=== PATIENT | female | born 2000 | race Caucasian/White ===

== ENCOUNTER → 2021-07-18 15:42 | Outpatient (BNVA) | payer BC, SELFPAY | PROVIDERS: Family Provider Pediatrics; PCP Pediatrics; Visit Provider Nurse Practitioner | DX: R50.9 Fever, unspecified (principal); Z20.822 Contact with and (suspected) exposure to COVID-19 | CPT/HCPCS: 87400; 87635 ==

== ENCOUNTER → 2022-08-16 14:04 | Outpatient (BNVA) | payer BC, SELFPAY | PROVIDERS: Family Provider Pediatrics; PCP Family Medicine; Visit Provider Clinical Nurse Specialist Adult Health | DX: J06.9 Acute upper respiratory infection, unspecified (principal); J02.8 Acute pharyngitis due to other specified organisms | CPT/HCPCS: 87880 ==

== ENCOUNTER → 2022-09-09 11:40 | Outpatient (BNVA) | payer BC, SELFPAY | PROVIDERS: Family Provider Pediatrics; PCP Family Medicine; Visit Provider Nurse Practitioner Women's Health | DX: Z01.419 Encounter for gynecological examination (general) (routine) without abnormal findings (principal); Z12.4 Encounter for screening for malignant neoplasm of cervix; Z30.9 Encounter for contraceptive management, unspecified; Z30.41 Encounter for surveillance of contraceptive pills | CPT/HCPCS: 88175 ==

== ENCOUNTER → 2023-02-05 12:05 | Outpatient (BNVA) | payer BC, SELFPAY | PROVIDERS: Family Provider Family Medicine; PCP Family Medicine; Visit Provider Registered Nurse Neonatal Intensive Care | DX: R30.0 Dysuria (principal); B37.31 Acute candidiasis of vulva and vagina | CPT/HCPCS: 81000 ==

== ENCOUNTER 2023-06-16 10:52 | Outpatient (CLI) | payer BC, SELFPAY ==
[2023-06-16 11:21] LABS: Basophils # 0.1 10^3/uL (0.0-0.1); Basophils % 0.9 %; Eosinophils # 0.1 10^3/uL (0.0-0.8); Eosinophils % 1.5 %; Hematocrit 45.4 % (36-47); Lymphocytes # 2.3 10^3/uL (0.8-4.8); Lymphocytes % 30.7 %; Mean Corpuscular HGB Conc 33.7 g/dL (30-55); Mean Corpuscular Hemoglobin 32.3 pg (27-33); Mean Platelet Volume 10.3 fL (7.4-10.4); Monocytes # 0.5 10^3/uL (0.2-0.9); Monocytes % 6.4 %; Neutrophils # 4.48 10^3/uL (1.8-7.7); Neutrophils % 59.7 %; Nucleated Red Blood Cells % 0 %; Platelet Count 237 10^3/cmm (157-399); Red Blood Count 4.73 10^6/uL (3.85-5.65); Red Cell Distribution Width 11.7 % (12.1-15.1)
[2023-06-16 11:24] LABS: HCG Qualitative Urine. Negative (Negative)
[2023-06-16 11:54] LABS: Alanine Aminotransferase 15 U/L (0-33); Albumin Level 4.4 g/dL (3.5-5.2); Alkaline Phosphatase 40 U/L (35-105); Aspartate Amino Transferase 14 U/L (0-32); Chol HDL Ratio 2.92 mg/dL (0.0-4.40); Cholesterol 152 mg/dL (0-200); Globulin 2.8 g/dL (1.3-4.6); HDL Cholesterol 52 mg/dL (60-100); LDL Cholesterol Calculated 91 mg/dL (50-129); Total Bilirubin 0.4 mg/dL (0.15-1.2); Total Protein 7.2 g/dL (6.6-8.7); Triglycerides 46 mg/dL (0-150); VLDL Cholestrol Calculation 9 mg/dL (0-30)
== END 2023-06-16 10:53 | disposition home or self-care (01) ==
PROVIDERS: PCP Family Medicine; Visit Provider Nurse Practitioner Family
DX: Z01.89 Encounter for other specified special examinations (principal)
CPT/HCPCS: 36415; 80061; 80076; 81025; 84702; 85025

== ENCOUNTER 2023-07-14 10:37 | Outpatient (CLI) | payer BC, SELFPAY ==
[2023-07-14 11:18] LABS: HCG Qualitative Urine. Negative (Negative)
== END 2023-07-14 10:38 | disposition home or self-care (01) ==
PROVIDERS: PCP Family Medicine; Visit Provider Nurse Practitioner Family
DX: L70.0 Acne vulgaris (principal)
CPT/HCPCS: 81025

== ENCOUNTER → 2023-08-13 10:46 | Outpatient (BNVA) | payer BC, SELFPAY | PROVIDERS: PCP Family Medicine; Visit Provider Nurse Practitioner | DX: Z00.00 Encounter for general adult medical examination without abnormal findings (principal); Z76.89 Persons encountering health services in other specified circumstances | CPT/HCPCS: 81025 ==

== ENCOUNTER 2023-09-12 10:09 | Outpatient (CLI) | payer BC, SELFPAY ==
[2023-09-12 11:17] LABS: HCG Qualitative Urine. Negative (Negative)
[2023-09-12 11:31] LABS: Alanine Aminotransferase 12 U/L (0-33); Albumin Level 4.1 g/dL (3.5-5.2); Alkaline Phosphatase 48 U/L (35-105); Aspartate Amino Transferase 14 U/L (0-32); Chol HDL Ratio 3.94 mg/dL (0.0-4.40); Cholesterol 138 mg/dL (0-200); Globulin 3.6 g/dL (1.3-4.6); HDL Cholesterol 35 mg/dL (60-100); LDL Cholesterol Calculated 71 mg/dL (50-129); LDL HDL Ratio 2.03 RATIO (0.00-3.22); Total Bilirubin 0.3 mg/dL (0.15-1.2); Total Protein 7.7 g/dL (6.6-8.7); Triglycerides 162 mg/dL (0-150)
== END 2023-09-12 10:10 | disposition home or self-care (01) ==
LOC: LAB 10:11
PROVIDERS: PCP Family Medicine; Visit Provider Nurse Practitioner Family
DX: L70.0 Acne vulgaris (principal)
CPT/HCPCS: 36415; 80061; 80076; 81025

== ENCOUNTER 2023-10-10 09:16 | Outpatient (CLI) | payer BC, SELFPAY ==
[2023-10-10 10:02] LABS: HCG Qualitative Urine. Negative (Negative)
== END 2023-10-10 09:17 | disposition home or self-care (01) ==
LOC: LAB 09:17
PROVIDERS: PCP Family Medicine; Visit Provider Nurse Practitioner Family
DX: L70.0 Acne vulgaris (principal)
CPT/HCPCS: 81025

== ENCOUNTER 2023-11-07 10:10 | Outpatient (CLI) | payer BC, SELFPAY ==
[2023-11-07 11:57] LABS: HCG Qualitative Urine. Negative (Negative)
== END 2023-11-07 10:11 | disposition home or self-care (01) ==
LOC: LAB 10:15
PROVIDERS: PCP Family Medicine; Visit Provider Nurse Practitioner Family
DX: L70.0 Acne vulgaris (principal)
CPT/HCPCS: 81025

== ENCOUNTER 2023-12-12 09:22 | Outpatient (CLI) | payer BC, SELFPAY ==
[2023-12-12 09:49] LABS: HCG Qualitative Urine. Negative (Negative)
== END 2023-12-12 09:23 | disposition home or self-care (01) ==
LOC: LAB 09:25
PROVIDERS: PCP Family Medicine; Visit Provider Nurse Practitioner Family
DX: L70.0 Acne vulgaris (principal)
CPT/HCPCS: 81025

== ENCOUNTER → 2024-07-26 08:59 | Outpatient (BNVA) | payer BC, SELFPAY | PROVIDERS: PCP Family Medicine; Visit Provider Nurse Practitioner | DX: R09.89 Other specified symptoms and signs involving the circulatory and respiratory systems (principal) | CPT/HCPCS: 71046 ==

== ENCOUNTER 2024-07-26 13:17 | Emergency (ER) | payer BC, SELFPAY ==
[2024-07-26 13:21] VITALS: BP 108/63; PULSE 75; RESP 16; TEMP 36.7; O2SAT 100
--- NOTE | 2024-07-26 14:08 | ED_ITS ---
HPI - SOB/Dyspnea 2 General: Chief Complaint: Shortness of Breath/Dyspnea Stated Complaint: SOB Time Seen by Provider: 07/26/24 13:53 Source: patient and family Mode of arrival: ambulatory Limitations: no limitations History of Present Illness: HPI Narrative: Patient is a 23-year-old female presents to ED today along with her mother for intermittent episodes of feeling like she cannot breathe. She states these have been going on for several weeks. She states over the past 3 days episodes have gotten more frequent and lasting longer. She states they seem to come out of nowhere and are not exertionally related. She states during episodes she feels like she cannot take a deep breath of air. She feels like her heart is flip- flopping or skipping beats. She states she has checked her pulse during episodes and it does not seem to be elevated. Patient states she has not been ill recently. She has not had any nasal congestion, runny nose, cough, or sore throat. No fevers. She has not had any swelling to her lower extremities or calf pain. Risk factors for PE would include hormonal contraception and car ride from [place]. She was reportedly seen at the urgent care clinic earlier today. There she had had some complaints of reflux. Note also stated she had recently quit vaping. Patient denies history of anxiety. She does feel like during episodes, her fingers will sometimes feel numb. During my initial assessment of pain she is asymptomatic. She states in between episodes she is completely asymptomatic. Mother states they have had increased family stress with the loss of patient's grandmother and the holidays. She is on medications for acne (accutane and spironolactone) but was having symptoms before these medications were started. MD elicited complaint: shortness of breath Onset (ago): week(s) Timing: intermittent Severity: moderate Exacerbating factors: nothing Relieving factors: nothing Associated symptoms: Reports chest pain and palpitations; Deny abdominal pain, chest congestion, extremity pain, fever(s), hemoptysis, lightheadedness, nausea, orthopnea, syncope or vomiting Treatment prior to arrival: none Related Data Home Medications Medication Instructions Recorded Confirmed dapsone 7.5 % topical gel with 1 applic topical BID 07/26/24 07/26/24 pump (Aczone) isotretinoin 30 mg capsule 30 mg PO BID 07/26/24 07/26/24 (Accutane) metronidazole 0.75 % topical gel 1 applic topical DAILY 07/26/24 07/26/24 spironolactone 50 mg tablet 50 mg PO DAILY 07/26/24 07/26/24 tretinoin 0.025 % topical cream 1 applic topical DAILY 07/26/24 07/26/24 Previous Rx's Medication Instructions Recorded levonorgestrel 0.15 mg-ethinyl 1 tab PO DAILY #84 tabs 10/26/23 estradiol 0.03 mg tablet (Levora-28) albuterol sulfate 90 mcg/actuation 2 puff inhalation Q4H PRN 07/26/24 aerosol inhaler (Ventolin HFA) shortness of breath or wheezing #8.5 grams famotidine 20 mg tablet 20 mg PO DAILY 4 weeks #30 tabs 07/26/24 lorazepam 0.5 mg tablet (Ativan) 0.5 mg PO BID PRN dyspnea #14 tabs 07/26/24 Allergies Allergy/AdvReac Type Severity Reaction Status Date / Time romeo Allergy Severe facial Verified 07/26/24 13:26 swelling Penicillins Allergy hives Verified 07/26/24 13:26 Review of Systems 2 Const: Denies: fever(s), chills, body aches, fatigue or malaise Eyes: Denies: change in vision, blurry vision or photophobia Card: Reports: chest pain and palpitations; Denies: irregular heart rhythm, edema, swelling of feet/ankles, lightheadedness, syncope, pre-syncope, dyspnea on exertion, orthopnea, leg pain with exertion or acrocyanosis Resp: Reports: dyspnea (intermittently ); Denies: productive cough, non-productive cough, wheezing, stridor, pain on inspiration, change in phlegm color, hemoptysis or chest congestion GI: Denies: abdominal pain, nausea, vomiting, heartburn or diarrhea : Denies: dysuria Musc: Denies: neck pain, back pain, extremity pain, extremity swelling or joint pain Skin/Breast: Denies: rash Neuro: Reports: sensory changes (sometimes gets numbness/tingling in fingers during episodes); Denies: headache(s), numbness in extremities or weakness in extremities PFSH ED 2 PFSH: Medical History Anxiety and depression No pertinent past medical history neghx: htn,dm,thyroid,dvt/pe PCP: Dr. Mendez Surgical History Hx of LASIK (~01/2023) H/O oral surgery (~08/2018) H/O arthroscopic knee surgery (~2017) H/O breast augmentation (~2018) Family History Denies family history of Colon cancer Ovarian cancer Diabetes Heart disease Hyperlipidemia Breast cancer Family history of thyroid problem Hypertension Uterine cancer Stroke Social History Smoking and tobacco/nicotine status: former use of tobacco/nicotine Female Reproductive History: Date of last menstrual period: 07/25/24 S pontaneous abortions: No Physical Exam 2 Const: COMMON NORMALS: no acute distress, average body habitus, patient oriented x3, no limitations, healthy appearing, alert and well nourished G ENERAL APPEARANCE: cooperative ORIENTATION/CONSCIOUSNESS: Yes awake, Yes oriented to person, Yes oriented to place and Yes oriented to time HENMT: COMMON NORMALS: normocephalic and atraumatic HEAD & SCALP: normal to inspection, normocephalic and atraumatic Eye: GENERAL EYE: appearance normal, both eyes and all related structures Neck/C-Spine: COMMON NORMALS: full ROM, no lymphadenopathy, supple and no meningeal signs Chest: COMMONS NORMALS: normal inspection of the chest and normal palpation of entire chest wall Resp: COMMON NORMALS: normal respiratory effort and clear to auscultation bilaterally AUSCULTATION: clear to auscultation bilaterally Cardio: COMMON NORMALS: regular rate and regular rhythm RATE: regular rate RHYTHM: regular rhythm GI: COMMON NORMALS: Normal to inspection, nondistended, normoactive bowel sounds present, Soft to palpation, non-tender, No hepatosplenomegaly present and no masses PALPATION: Yes Soft to palpation and Yes No hepatosplenomegaly present : COMMON NORMALS: Yes no CVA tenderness BLADDER/KIDNEY EXAM: Yes no CVA tenderness Back/Pelvis: COMMON NORMALS: no CVA tenderness and thoracic and lumbar spine normal to inspection Extremity: COMMON NORMALS: normal to inspection, capillary refill normal, no clubbing, cyanosis or edema, no calf tenderness and no pedal edema GENERAL: Y es normal exam except as noted Neuro: COMMON NORMALS: patient oriented x3, moves all extremities, no focal motor deficits, no sensory deficits noted and gait normal S ENSORIUM/ORIENTATION: Yes alert, Yes oriented to person, Yes oriented to place and Yes oriented to time MENINGEAL SIGNS: Yes no meningeal signs Skin: COMMON NORMALS: no rashes or lesions noted GENERAL SKIN EXAM: no rashes or lesions noted Course 2 Vital Signs: Vital signs: Vital Signs Temperature 98.1 F 07/26/24 13:21 Pulse Rate 72 07/26/24 15:41 Respiratory Rate 16 07/26/24 13:21 Blood Pressure 136/67 07/26/24 14:37 Pulse Oximetry 100 07/26/24 15:41 Oxygen Delivery Me thod Room Air 07/26/24 14:37 MDM - SOB/Dyspnea Medical Decision Making Patient's symptoms are intermittent. In between episodes she is completely asymptomatic. There is no exertional component. Workup here including CBC, CMP, D-dimer, BNP, baseline troponin all of which are unremarkable. Her EKG is normal. CXR reviewed from walk-in clinic visit earlier and normal. is negative. DDx at this time includes ectopic heartbeats, arrhythmias, anxiety/panic attacks. She has been completely asymptomatic throughout her stay. Discussed possibly trialing her on Propranolol however she is young and healthy and blood pressure upon arrival was 108/63-would not want to further lower this. I will give her a small amount of ativan to take during an acute episode to see if this alleviates it. If so then she might consider anxiety to be the cause. We also discussed possible Holter monitor down the road when she follows up with primary care. Return to ED precautions given. Medical Records I reviewed the patient's medical records. Lab Data I reviewed the patient's lab results. 07/26/24 14:23 07/26/24 14:23 Labs/Radiology: Laboratory Results WBC 8.31 10^3/uL (3.29-11.43) 07/26/24 14:23 RBC 4.05 10^6/uL (3.85-5.65) 07/26/24 14:23 Hgb 13.20 g/dL (11.27-16.99) 07/26/24 14:23 Hct 39.6 % (36-47) 07/26/24 14:23 MCV 97.8 fl (85-98) 07/26/24 14:23 MCH 32.6 pg (27-33) 07/26/24 14:23 MCHC 33.3 g/dL (30-55) 07/26/24 14:23 RDW 11.9 % (12.1-15.1) L 07/26/24 14:23 Plt Count 193 10^3/cmm (157-399) 07/26/24 14:23 MPV 10.7 fL (7.4-10.4) H 07/26/24 14:23 Neut % (Auto) 63.3 % 07/26/24 14:23 Lymph % (Auto) 27.7 % 07/26/24 14:23 [place] % (Auto) 6.6 % 07/26/24 14:23 Eos % (Auto) 1.3 % 07/26/24 14:23 Baso % (Auto) 0.6 % 07/26/24 14:23 Neut # (Auto) 5.26 10^3/uL (1.8-7.7) 07/26/24 14:23 Lymph # (Auto) 2.3 10^3/uL (0.8-4.8) 07/26/24 14:23 [place] # (Auto) 0.6 10^3/uL (0.2-0.9) 07/26/24 14:23 Eos # (Auto) 0.1 10^3/uL (0.0-0.8) 07/26/24 14:23 Baso # (Auto) 0.1 10^3/uL (0.0-0.1) 07/26/24 14:23 Nucleated RBC % (auto) 0 % 07/26/24 14: Nucleated RBCs # 0.0 /100WBC 07/26/24 14: D-Dimer 0.30 ug/mLFEU (0-0.59) 07/26/24 14:23 Sodium 134 mmol/L (136-145) L 07/26/24 14:23 Potassium 3.7 mmol/L (3.5-5.1) 07/26/24 14:23 Chloride 103 mmol/L (98-107) 07/26/24 14:23 Carbon Dioxide 23 mmol/L (22-29) 07/26/24 14:23 Anion Gap 11.7 (5-19) 07/26/24 14:23 BUN 12 mg/dL (6-20) 07/26/24 14:23 Creatinine 0.7 mg/dL (0.5-0.9) 07/26/24 14:23 GFR Calculation 103.7 mL/min (90-130) 07/26/24 14:23 Glucose 122 mg/dL (65-115) H 07/26/24 14:23 Calculated Osmolality 279 mOsm/kg (285-295) L 07/26/24 14:23 Calcium 8.9 mg/dL (8.5-10.5) 07/26/24 14:23 Total Bilirubin 0.2 mg/dL (0.15-1.2) 07/26/24 14:23 AST 12 U/L (0-32) 07/26/24 14:23 ALT 11 U/L (0-33) 07/26/24 14:23 Alkaline Phosphatase 34 U/L (35-105) L 07/26/24 14:23 Troponin T Baseline < 6 ng/L (0-10) 07/26/24 14:23 NT-Pro-B Natriuret Pep 48 pg/mL (0-125) 07/26/24 14:23 Total Protein 5.6 g/dL (6.6-8.7) L 07/26/24 14:23 Albumin 3.8 g/dL (3.5-5.2) 07/26/24 14:23 Globulin 1.8 g/dL (1.3-4.6) 07/26/24 14:23 HCG, Qual Negative (Negative) 07/26/24 14:23 No radiology studies performed this visit Discharge Plan Discharge Patient Disposition: Home Clinical Impression: Palpitations Condition: Stable Prescriptions: New lorazepam [Ativan] 0.5 mg tablet 0.5 mg PO BID PRN (Reason: dyspnea) Qty: 14 0RF No Action isotretinoin [Accutane] 30 mg capsule 30 mg PO BID Rx Instructions: must administer with a meal/food spironolactone 50 mg tablet 50 mg PO DAILY famotidine 20 mg tablet 20 mg PO DAILY 28 Days Qty: 30 0RF albuterol sulfate [Ventolin HFA] 90 mcg/actuation HFA aerosol inhaler 2 puff inhalation Q4H PRN (Reason: shortness of breath or wheezing) Qty: 8.5 0RF levonorgestrel-ethinyl estrad [Levora-28] 0.15-0.03 mg tablet 1 tab PO DAILY Qty: 84 5RF Rx Instructions: take continuously and skipping placebo week tretinoin 0.025 % cream 1 applic TOPICAL DAILY metronidazole 0.75 % gel 1 applic TOPICAL DAILY dapsone [Aczone] 7.5 % gel with pump 1 applic TOPICAL BID Discharge Orders: Discharge ED (Routine); Ordered 07/26/24 Ordered By: Yudi Alexander Activity Restrictions/Additional Instructions: As we discussed, your emergency department workup here was completely unremarkable. I would like you to follow-up with primary care next week for further evaluation. We will trial you on something to see if symptoms could be related to anxiety as I suspect this given the intermittent nature of symptoms. We also spoke about possible Holter monitoring in the future if symptoms persist. Coding Level of Care Code ED Bilingual Call Center Representative for Kim Guillen
[2024-07-26 14:28] LABS: Basophils # 0.1 10^3/uL (0.0-0.1); Basophils % 0.6 %; Eosinophils # 0.1 10^3/uL (0.0-0.8); Eosinophils % 1.3 %; Hematocrit 39.6 % (36-47); Lymphocytes # 2.3 10^3/uL (0.8-4.8); Lymphocytes % 27.7 %; Mean Corpuscular HGB Conc 33.3 g/dL (30-55); Mean Corpuscular Hemoglobin 32.6 pg (27-33); Mean Corpuscular Volume 97.8 fl (85-98); Mean Platelet Volume 10.7 fL (7.4-10.4); Monocytes # 0.6 10^3/uL (0.2-0.9); Monocytes % 6.6 %; Neutrophils # 5.26 10^3/uL (1.8-7.7); Neutrophils % 63.3 %; Nucleated Red Blood Cells % 0 %; Platelet Count 193 10^3/cmm (157-399); Red Blood Count 4.05 10^6/uL (3.85-5.65); Red Cell Distribution Width 11.9 % (12.1-15.1); White Blood Count 8.31 10^3/uL (3.29-11.43)
--- NOTE | 2024-07-26 14:32 | ECG_ITS ---
[facility] Test Date: 2024-07-26 Pat Name: France Kearns Department: Room: Gender: Female Office Executive: : 2000 Requested By: Yudi Alexadner Order Number: [id number] Navarrete MD: Shyam Bustos M.D. Measurements Intervals [place] Rate: 68 P: 68 NV: 165 QRS: 87 QRSD: 86 T: 75 QT: 376 QTc: 402 Interpretive Statements SINUS RHYTHM No previous ECG available for comparison Electronically Signed On 07-28-2024 19:10:12 [employer] GENERATION ENGINE[employer] by Shyam Bustos M.D. [id number]
[2024-07-26 14:37] VITALS: BP 136/67; PULSE 94; O2SAT 100
[2024-07-26 14:48] LABS: Alanine Aminotransferase 11 U/L (0-33); Albumin Level 3.8 g/dL (3.5-5.2); Alkaline Phosphatase 34 U/L (35-105); Anion Gap 11.7 (5-19); Aspartate Amino Transferase 12 U/L (0-32); Blood Urea Nitrogen 12 mg/dL (6-20); Calcium 8.9 mg/dL (8.5-10.5); Carbon Dioxide 23 mmol/L (22-29); Chloride 103 mmol/L (98-107); Creatinine Clr Calc Pharmacy 120.6873; Globulin 1.8 g/dL (1.3-4.6); Glomerular Filtration Rate 103.7 mL/min (90-130); Glucose 122 mg/dL (65-115); Osmolality Calculated 279 mOsm/kg (285-295); Potassium 3.7 mmol/L (3.5-5.1); Sodium 134 mmol/L (136-145); Total Bilirubin 0.2 mg/dL (0.15-1.2); Total Protein 5.6 g/dL (6.6-8.7)
[2024-07-26 14:51] LABS: HCG, Serum Qual Negative (Negative); Troponin(5th) Baseline < 6 ng/L (0-10)
[2024-07-26 15:08] LABS: NT Pro B Type Natriuretic Pept 48 pg/mL (0-125)
[2024-07-26 15:41] VITALS: PULSE 72; O2SAT 100
== END 2024-07-26 15:44 | disposition home or self-care (01) ==
PROVIDERS: Emergency Provider Physician Assistant
DX: R00.2 Palpitations (principal)
CPT/HCPCS: 80053; 83880; 84484; 84703; 85025; 85378; 87426; 93005; 99284